=== PATIENT | male | born 1945 | race Hispanic/Latino ===

== ENCOUNTER → 2021-09-06 | Outpatient (CLI) | payer MEDICARE | LOC: MRI 10:47 | PROVIDERS: ATTEND Specialist | DX: M54.41 Lumbago with sciatica, right side (principal) | CPT/HCPCS: 72148 ==

== ENCOUNTER → 2021-10-12 | Outpatient (RCR) | payer MEDICARE | LOC: PT 09-27 07:03 | PROVIDERS: ATTEND Specialist | DX: M54.41 Lumbago with sciatica, right side (principal); M47.816 Spondylosis without myelopathy or radiculopathy, lumbar region ==

== ENCOUNTER 2021-10-22 06:54 | Outpatient (RCR) | payer MEDICARE | END 2021-11-11 | LOC: PT 06:54 | PROVIDERS: ATTEND Specialist | DX: M54.41 Lumbago with sciatica, right side (principal); M47.816 Spondylosis without myelopathy or radiculopathy, lumbar region | CPT/HCPCS: 97139 ==

== ENCOUNTER 2022-09-08 09:56 | Outpatient (RCR) | payer MEDICARE | END 2022-09-11 | LOC: PT 09:56 | PROVIDERS: ATTEND Family Medicine | DX: S40.011D Contusion of right shoulder, subsequent encounter (principal); M62.81 Muscle weakness (generalized); M25.511 Pain in right shoulder; M25.611 Stiffness of right shoulder, not elsewhere classified ==

== ENCOUNTER 2022-10-03 10:00 | Outpatient (RCR) | payer MEDICARE | END 2022-10-12 | LOC: PT 10:00 | PROVIDERS: ATTEND Family Medicine | DX: M25.511 Pain in right shoulder (principal); S40.011D Contusion of right shoulder, subsequent encounter; M62.81 Muscle weakness (generalized); M25.611 Stiffness of right shoulder, not elsewhere classified ==

== ENCOUNTER → 2024-12-31 | Day surgery (SDC) | payer MEDICARE ==
[2024-12-24 14:53] LABS: BASOPHILS % 0.7 % (0.0-1.0); EOSINOPHILS % 4.3 % (0.0-6.0); LYMPHOCYTES % 36.7 % (18.0-39.1); MONOCYTES % 10.5 % (4.4-11.3); NEUTROPHILS % 47.4 % (38.7-80.0); RED CELL DISTRIBUTION WIDTH 13.0 % (11.7-14.4)
[~2024-12-31] MED LIST: ACETAMINOPHEN-1 EAC4 PO; ASPIRIN81 MG PO; CENTRUM ADULTS1 EACH PO; DEXAMETHASONE SOD PHOS INJ 4 MG/ML SDV ONE; FENTANYL CITRATE/PF 100MCG/2 ML INJ ONE; KETOROLAC TROMETHAMINE 30 MG/ML VIAL ONE; LEVOTHYROXINE75 MCG PO; LIDOCAINE HCL 2% LOCAL INJ 5 ML SDV VIAL INJ ONE; LISINOPRIL10 MG PO; OMEPRAZOLE40 MG PO; ONDANSETRON HCL INJ 2MG/ML 2ML 2 MG/ML VIAL ONE; PROPOFOL IV EMULSION 10 MG/ML 20 ML VIAL ONE; PROTONIX20 MG PO; SODIUM CHLORIDE 0.9% 100 ML ONE; SUCCINYLCHOLINE CHLORIDE 20 MG/ML 10ML VIAL ONE
[2024-12-31 07:23] VITALS: TEMP 98.7
[2024-12-31 08:15] VITALS: BP 115/72; PULSE 62; RESP 16; O2SAT 99
[2024-12-31] MEDS: LACTATED RINGER'S 1,000 ML ONE (09:29)
== END | disposition home or self-care (01) ==
LOC: OR 05:42
PROVIDERS: ATTEND Plastic Surgery
DX: G56.01 Carpal tunnel syndrome, right upper limb (principal); M65.841 Other synovitis and tenosynovitis, right hand; G62.9 Polyneuropathy, unspecified; D64.9 Anemia, unspecified; I10 Essential (primary) hypertension; E03.9 Hypothyroidism, unspecified; K21.9 Gastro-esophageal reflux disease without esophagitis; Z01.810 Encounter for preprocedural cardiovascular examination; Z01.812 Encounter for preprocedural laboratory examination; Z01.818 Encounter for other preprocedural examination; Z79.82 Long term (current) use of aspirin; Z79.899 Other long term (current) drug therapy
CPT/HCPCS: 25115; 36415; 71046; 85025; 93005; J0330; J0690; J1100; J1885; J2003; J2405; J2704; J3010; J7050; J7121

== ENCOUNTER → 2025-02-18 | Day surgery (SDC) | payer MEDICARE ==
[2025-02-17 08:33] LABS: BASOPHILS % 0.8 % (0.0-1.0); EOSINOPHILS % 2.4 % (0.0-6.0); LYMPHOCYTES % 27.8 % (18.0-39.1); MONOCYTES % 7.2 % (4.4-11.3); NEUTROPHILS % 61.5 % (38.7-80.0); RED CELL DISTRIBUTION WIDTH 12.2 % (11.7-14.4)
[~2025-02-18] MED LIST changes: -KETOROLAC TROMETHAMINE 30 MG/ML VIAL ONE; -SODIUM CHLORIDE 0.9% 100 ML ONE; -SUCCINYLCHOLINE CHLORIDE 20 MG/ML 10ML VIAL ONE
[2025-02-18 07:24] VITALS: TEMP 97
[2025-02-18] MEDS: LACTATED RINGER'S 1,000 ML ONE (08:09)
[2025-02-18 08:15] VITALS: BP 107/67; PULSE 66; RESP 16; O2SAT 97
== END | disposition home or self-care (01) ==
LOC: OR 05:31
PROVIDERS: ATTEND Plastic Surgery
DX: G56.02 Carpal tunnel syndrome, left upper limb (principal); M65.922 Unspecified synovitis and tenosynovitis, left upper arm; I10 Essential (primary) hypertension; K21.9 Gastro-esophageal reflux disease without esophagitis; E03.9 Hypothyroidism, unspecified; E78.5 Hyperlipidemia, unspecified; I70.212 Atherosclerosis of native arteries of extremities with intermittent claudication, left leg; R01.1 Cardiac murmur, unspecified; I83.11 Varicose veins of right lower extremity with inflammation; I83.12 Varicose veins of left lower extremity with inflammation; Z79.82 Long term (current) use of aspirin; Z79.890 Hormone replacement therapy; Z79.899 Other long term (current) drug therapy; Z01.812 Encounter for preprocedural laboratory examination
CPT/HCPCS: 25115; 36415; 64721; 85025; J0690; J1100; J2003; J2405; J2704; J3010; J7121